=== PATIENT | male | born 1970 | race Two or more races ===

== ENCOUNTER 2025-04-06 21:16 | Emergency (ER) | payer OTHER ==
[~2025-04-06] VITALS: Ht 182.9 cm; Wt 109.8 kg
[2025-04-06] MEDS ORDERED: CRESTOR40 MG (21:32)
[2025-04-06] MEDS ORDERED: ZESTRIL20 MG (21:32)
[2025-04-06] MEDS ORDERED: CEFTRIAXONE SODIUM 1,000 MG VIAL IM STA (22:08)
[2025-04-06] MEDS ORDERED: DEXAMETHASONE SODIUM PHOSPHATE 4 MG/ML VIAL IM STA (22:08)
[2025-04-06] MEDS ORDERED: DIPHTH,PERTUSS(ACELL),TET VAC 0.5 ML VIAL IM STA (22:08)
[2025-04-06] MEDS ORDERED: DIPHTH,PERTUSS(ACELL),TET VAC 0.5 ML SYRINGE IM ONE (23:03)
[2025-04-06] MEDS ORDERED: CEFTRIAXONE SODIUM 1,000 MG VIAL ONE (23:03)
[2025-04-06] MEDS ORDERED: DEXAMETHASONE SODIUM PHOSPHATE 4 MG/ML VIAL ONE (23:03)
[2025-04-06] MEDS ORDERED: DOLOGESIC 500-1 EACH PO (23:24)
[2025-04-06] MEDS ORDERED: BACTRIM DS TAB1 EACH PO (23:24)
== END 2025-04-07 01:03 | disposition home or self-care (01) ==
LOC: ER 21:16
DX: S61.431A Puncture wound without foreign body of right hand, initial encounter (principal); X58.XXXA Exposure to other specified factors, initial encounter; Y93.89 Activity, other specified; Y92.89 Other specified places as the place of occurrence of the external cause; Y99.9 Unspecified external cause status; I10 Essential (primary) hypertension; Z88.6 Allergy status to analgesic agent